=== PATIENT | male | born 1990 ===

== ENCOUNTER 2019-01-18 14:32 | Emergency (ER) | payer OTHER ==
[2019-01-18 16:01] LABS: ABS Eosinophils 0.3 10^3/ul (0-0.6); ABS Monocytes 0.4 10^3/ul (0-0.8); ABS Neutrophils 2.4 10^3/ul (1.5-7.7); Eosinophil % 6.1 %; Hematocrit 44 % (42-52); Hemoglobin 15.4 g/dL (14.0-18.0); Lymphocyte % 24.7 %; Mean Corpuscular HGB Conc 35 g/dL (31-36); Mean Corpuscular Hemoglobin 33 pg (27-31); Mean Corpuscular Volume 94 fL (80-94); Platelet Count 200 10^3/uL (150-450); Red Cell Distribution Width 13 % (10-15); White Blood Count 4.1 10^3/uL (3.5-10.8)
[2019-01-18 16:30] LABS: ALT 16 U/L (7-52); AST 18 U/L (13-39); Albumin 4.8 g/dL (3.2-5.2); Albumin/Globulin Ratio 2.3 (1-3); Alkaline Phosphatase 48 U/L (34-104); Anion Gap 6 mmol/L (2-11); BUN/Creatinine Ratio 18.6 (8-20); Blood Urea Nitrogen 18 mg/dL (6-24); C Reactive Protein < 1.00 mg/L (<8.01); CO2 Carbon Dioxide 29 mmol/L (22-32); Calcium 9.4 mg/dL (8.6-10.3); Chloride 106 mmol/L (101-111); EGFR African American 110.7 (>60); EGFR Non-African American 91.5 (>60); Globulin 2.1 g/dL (2-4); Glucose 89 mg/dL (70-100); Potassium 4.1 mmol/L (3.5-5.0); Sodium 141 mmol/L (135-145); Total Protein 6.9 g/dL (6.4-8.9)
--- NOTE | 2019-01-18 18:04 | ED ---
Abdominal Pain/Male - HPI Summary HPI Summary: Patient complains of intermittent right lower quadrant pain 1 week, and right- sided scrotum pain 3 days. Abdominal pain is new onset, intermittent, worse with coffee, not worse with eating or movement. Patient denies fever, cough, sore throat, CP, SOB, N/V/D, change in urine, penile discharge, testicular redness or swelling. Medical history is none. Abdominal surgical history is none. - History of Current Complaint Chief Complaint: EDAbdPain Stated Complaint: ABD PAIN RIGHT SIDE PER PT Time Seen by Provider: 01/18/19 18:02 Hx Obtained From: Patient Onset/Duration: Gradual Onset, Lasting Days Timing: Intermittent Severity Initially: Moderate Severity Currently: Moderate Pain Intensity: 5 Pain Scale Used: 0-10 Numeric Location: Discrete At: RLQ, Groin Radiates: Yes Radiates to: Other Character: Dull, Cramping Aggravating Factor(s): Nothing Alleviating Factor(s): Nothing Associated Signs And Symptoms: Positive: Negative - Allergies/Home Medications Allergies/Adverse Reactions: Allergies Allergy/AdvReac Type Severity Reaction Status Date / Time No Known Allergies Allergy Verified 01/18/19 14:38 PMH/Surg Hx/FS Hx/Imm Hx Endocrine/Hematology History: Denies: Hx Anticoagulant Therapy Cardiovascular History: Denies: Hx Pacemaker/ICD History: Denies: Hx Dialysis Sensory History: Denies: Hx Eye Prosthesis Opthamlomology History: Denies: Hx Legally Blind EENT History: Denies: Hx Deafness Neurological History: Denies: Hx Dementia Psychiatric History: Denies: Hx Autism Infectious Disease History: No Infectious Disease History: Denies: Traveled Outside the [place] in Last 30 Days - Family History Known Family History: Positive: Non-Contributory - Social History Alcohol Use: Occasionally Hx Substance Use: No Hx Tobacco Use: No Review of Systems Constitutional: Negative Eyes: Negative ENT: Negative Cardiovascular: Negative Respiratory: Negative Positive: Abdominal Pain Genitourinary: Negative Musculoskeletal: Negative Skin: Negative Neurological: Negative Psychological: Normal All Other Systems Reviewed And Are Negative: Yes Physical Exam - Summary Physical Exam Summary: Abdomen soft nontender, no tenderness to palpation. Normal exam of genitals. Triage Information Reviewed: Yes Vital Signs On Initial Exam: Initial Vitals Temp Pulse Resp BP Pulse Ox 98.1 F 79 14 123/82 99 01/18/19 14:35 01/18/19 14:35 01/18/19 14:35 01/18/19 14:35 01/18/19 14:35 Vital Signs Reviewed: Yes Appearance: Positive: Well-Appearing Skin: Positive: Warm Head/Face: Positive: Normal Head/Face Inspection Eyes: Positive: Normal Neck: Positive: Supple Respiratory/Lung Sounds: Positive: Clear to Auscultation Cardiovascular: Positive: Normal Abdomen Description: Positive: Nontender Male Genital Exam: Positive: Normal Genitalia Musculoskeletal: Positive: Normal Neurological: Positive: Normal Psychiatric: Positive: Normal AVPU Assessment: Alert - Lelia Coma Scale Best Eye Response: 4 - Spontaneous Best Motor Response: 6 - Obeys Commands Best Verbal Response: 5 - Oriented Coma Scale Total: 15 Diagnostics - Vital Signs Vital Signs Temp Pulse Resp BP Pulse Ox 01/18/19 14:35 98.1 F 79 14 123/82 99 - Laboratory Lab Results: Lab Results 01/18/19 01/18/19 01/18/19 Range/Units 15:38 15:38 15:38 WBC 4.1 (3.5-10.8) 10^3/uL RBC 4.70 (4.18-5.48) 10^6 /uL Hgb 15.4 (14.0-18.0) g/dL Hct 44 (42-52) % MCV 94 (80-94) fL MCH 33 H (27-31) pg MCHC 35 (31-36) g/dL RDW 13 (10-15) % Plt Count 200 (150-450) 10^3/uL MPV 9.0 (7.4-10.4) fL Neut % (Auto) 59.3 % Lymph % (Auto) 24.7 % Frontier % (Auto) 9.1 % Eos % (Auto) 6.1 % Baso % (Auto) 0.8 % Absolute Neuts (auto) 2.4 (1.5-7.7) 10^3/ul Absolute Lymphs (auto) 1.0 (1.0-4.8) 10^3/ul Absolute Monos (auto) 0.4 (0-0.8) 10^3/ul Absolute Eos (auto) 0.3 (0-0.6) 10^3/ul Absolute Basos (auto) 0.0 (0-0.2) 10^3/ul Absolute Nucleated RBC 0.0 10^3/ul Nucleated RBC % 0.0 Sodium 141 (135-145) mmol/L Potassium 4.1 (3.5-5.0) mmol/L Chloride 106 (101-111) mmol/L Carbon Dioxide 29 (22-32) mmol/L Anion Gap 6 (2-11) mmol/L BUN 18 (6-24) mg/dL Creatinine 0.97 (0.67-1.17) mg/dL Est GFR ( Amer) 110.7 (>60) Est GFR (Non-Af Amer) 91.5 (>60) BUN/Creatinine Ratio 18.6 (8-20) Glucose 89 (70-100) mg/dL Lactic Acid 1.5 (0.5-2.0) mmol/L Calcium 9.4 (8.6-10.3) mg/dL Total Bilirubin 0.60 (0.2-1.0) mg/dL AST 18 (13-39) U/L ALT 16 (7-52) U/L Alkaline Phosphatase 48 (34-104) U/L C-Reactive Protein < 1.00 (<8.01) mg/L Total Protein 6.9 (6.4-8.9) g/dL Albumin 4.8 (3.2-5.2) g/dL Globulin 2.1 (2-4) g/dL Albumin/Globulin Ratio 2.3 (1-3) Lipase 31 (11.0-82.0) U/L Result Diagrams: 01/18/19 15:38 01/18/19 15:38 Lab Statement: Any lab studies that have been ordered have been reviewed, and results considered in the medical decision making process. Abdominal Pain Male Course/Dx - Course Course Of Treatment: Patient complains of intermittent right lower quadrant pain 1 week, and right-sided scrotum pain 3 days. Abdominal pain is new onset , intermittent, worse with coffee, not worse with eating or movement. Patient denies fever, cough, sore throat, CP, SOB, N/V/D, change in urine, penile discharge, testicular redness or swelling. Medical history is none. Abdominal surgical history is none. Vital signs within normal limits. Labs unremarkable. Urine negative. Ultrasound testicles positive for left varicocele otherwise negative. CT abdomen and pelvis positive for borderline enlarged appendix measuring 7-8 mm in diameter minimal surrounding stranding. Early appendicitis is possible but not definite. Constipation. Possible mild bladder wall thickening. Patient vital signs are normal. Patient labs are unremarkable. Physical exam has nontender abdomen at this time pain symptoms in the right lower quadrant present for a week. If appendicitis appendix should be more involved. Advised patient to go home and try magnesium citrate to relieve constipation. Patient also advised if pain gets worse or patient develops fever, nausea or vomiting to return for reevaluation. Patient understands and approves of plan. - Diagnoses Provider Diagnoses: Abdominal pain, Constipation Discharge ED - Sign-Out/Discharge Documenting (check all that apply): Patient Departure Patient Received Moderate/Deep Sedation with Procedure: No - Discharge Plan Condition: Stable Disposition: HOME Patient Education Materials: Constipation (ED), Acute Abdominal Pain (ED) Referrals: No Primary Care Phys,NOPCP [Primary Care Provider] - Additional Instructions: Try a half bottle of magnesium citrate to help relieve constipation. If half bottle does not work, drink the whole bottle. Magnesium citrate is available at your pharmacy. If your stomach pain gets worse or you get fever, or nausea and vomiting, return to the ED for further evaluation. - Billing Disposition and Condition Condition: STABLE Disposition: Home
[2019-01-18 19:38] LABS: Urine Appearance Cloudy; Urine Bilirubin Negative (Negative); Urine Blood Negative (Negative); Urine Color Yellow; Urine Glucose Negative (Negative); Urine Ketones Negative (Negative); Urine Nitrite Negative (Negative); Urine Protein Negative (Negative); Urine Specific Gravity 1.014 (1.010-1.030); Urine Urobilinogen Negative (Negative)
[2019-01-18] MEDS ORDERED: Iohexol 300* (CONTRAST) 10 ML SDV IV ONE (20:09)
[2019-01-18 21:12] VITALS: BP 110/73
== END 2019-01-18 21:11 | disposition home or self-care (01) ==
LOC: ED 14:32
DX: K59.00 Constipation, unspecified (principal); I86.1 Scrotal varices
CPT/HCPCS: 36415; 74177; 76870; 80053; 81003; 83605; 83690; 85025; 86140; 99282; Q9967